=== PATIENT | female | born 1975 | race Two or more races ===

== ENCOUNTER 2017-02-19 21:05 | Emergency (ER) | payer BC, MEDICAID ==
--- NOTE | ~2017-02-19 | CT71 ---
[facility] A Service of [facility] RADIOLOGY TEXT RESULTS PATIENT: YUE SCOTT LOCATION: [facility] : [birth year] UNIT #: [id number] AGE: [address]: Jude Rosario MD SEX: F ORDER DR: [id number] [facility] [address] [facility]. [place], [place] [address] [id number] MR#: [id number] Acc #: [id number] NAME: YUE SCOTT : 1975 SEX: F STUDY DATE/TIME: UNIT: [facility] ROOM: STUDY DESCRIPTION: CT Head Wo Contrast Attending Physician: Jude Rosario Ordering Physician: Jude Rosario, [id number] Primary Care Physician: Primary Care Physician No MEDICAL IMAGING REPORT This report is preliminary unless electronic signature is present EXAM Head CT 02/19 2325 hours INDICATIONS Headache today. Chronic headache over the last several months. Pain currently rates [address] exam was performed with one or more of the following radiation dose reduction techniques: automatic exposure control, adjustment of mA and/or kV according to patient size, and iterative reconstruction COMPARISON None. FINDINGS Axial images were obtained from the base to the vertex without contrast. Ventricular size and configuration are within normal limits. Scattered areas of low attenuation are seen in the white matter within both cerebral hemispheres. This is a nonspecific finding. It could reflect a sequelae of chronic small vessel ischemic disease. However, demyelinating process such as multiple sclerosis could have this appearance as well. Non emergent followup with pre and postcontrast brain MRI is recommended. No acute infarct or hemorrhage. No focal masses. No skull fractures. There is acute right sphenoid and left maxillary sinusitis and there is chronic mucosal thickening in the remaining paranasal sinuses. IMPRESSION 1. No acute findings in the brain. 2. Scattered areas of low attenuation in the white matter are nonspecific in a patient of this age. While these could be related to chronic small vessel ischemic disease, a demyelinating process such as multiple sclerosis could have this appearance as well. Non emergent followup with pre and postcontrast brain MRI is recommended. [facility] A Service of [facility] RADIOLOGY TEXT RESULTS PATIENT: YUE SCOTT LOCATION: [facility] : [birth year] UNIT #: [id number] AGE: [address]: Jude Rosario MD SEX: F ORDER DR: 3. Acute right sphenoid and left maxillary sinusitis with chronic mucosal thickening in the remaining paranasal sinuses. Dictated by... Ganesh Maravilla Jr., M.D. THIS IS AN ELECTRONICALLY VERIFIED REPORT Ganesh Maravilla Jr., M.D. at 02/20/2017 8:13 PM Hannah TD: 02/20/2017 11:30 JOB #: [id number] MEDICAL IMAGING REPORT Page 1 of 1 COPY
== END 2017-02-20 00:49 | disposition home or self-care (01) ==
LOC: CED 21:05
DX: J01.90 Acute sinusitis, unspecified (principal)
CPT/HCPCS: 70450; 96372; 99284; J1885

== ENCOUNTER → 2017-02-23 | Outpatient (CLI) | payer BC, MEDICAID ==
--- NOTE | ~2017-02-23 | US128 ---
[id number] [facility] [address] [facility]. [place], [place] [address] [id number] O MR#: [id number] Acc #: [id number] NAME: YUE SCOTT : 1975 SEX: F STUDY DATE/TIME: 02/23/2017 13:15 UNIT: [facility] ROOM: STUDY DESCRIPTION: Thyroid Attending Physician: Cielo Warner Referring Physician: Cielo Warner Ordering Physician: Cielo Montoya Aprn Primary Care Physician: Mary Carmen Morse M.D. MEDICAL IMAGING REPORT This report is preliminary unless electronic signature is present EXAM Thyroid sonogram HISTORY 41-year-old female with weight gain, hair loss, heat intolerance x3 months. FINDINGS Real-time examination demonstrates the thyroid gland to be of normal size shape and echogenicity. No focal mass lesions identified. Vascularity within normal limits. The isthmus appears normal. The right lobe measures 1.7 x 4.5 x 1.6 inches and the left lobe measures 1.6 x 4.1 x 1.2 cm. IMPRESSION Normal thyroid sonogram. Dictated by... Heike Dillon M.D. THIS IS AN ELECTRONICALLY VERIFIED REPORT Heike Dillon M.D. at 02/27/2017 10:16 AM MEERA/zane TD: 02/23/2017 19:41 JOB #: [id number] MEDICAL IMAGING REPORT Page 1 of 1 COPY
== END | disposition home or self-care (01) ==
LOC: CGUS 12:45
DX: R53.83 Other fatigue (principal)
CPT/HCPCS: 76536